=== PATIENT | female | born 1945 | race Caucasian/White ===

== ENCOUNTER → 2016-12-14 | Outpatient (CLI) | payer MEDICARE, OTHER ==
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
[2016-12-14 09:10] LABS: POC - CREATININE 0.87 mg/dL (0.44-1.03); POC - GFR >60.0 mL/min (>60)
== END | disposition home or self-care (01) ==
LOC: SCT 08:31
PROVIDERS: Family Medicine
DX: R55 Syncope and collapse (principal); R22.0 Localized swelling, mass and lump, head
CPT/HCPCS: 70460; 82565; Q9967

== ENCOUNTER → 2016-12-16 | Outpatient (CLI) | payer MEDICARE, OTHER ==
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
== END | disposition home or self-care (01) ==
LOC: SMRI 08:42
DX: G93.89 Other specified disorders of brain (principal)
CPT/HCPCS: 70553; A9581